=== PATIENT | female | born 1990 | race Caucasian/White ===

== ENCOUNTER 2019-06-09 06:48 | Emergency (ER) | payer BC ==
[~2019-06-09] VITALS: Ht 167.6 cm; Wt 68.0 kg
[2019-06-09 07:06] VITALS: BP_SYST 129
--- NOTE | 2019-06-09 07:06 | NUR ---
Patient to ER bed 8 to gown for evaluation. Side rails up. Report given to VARUN Alexis.
--- NOTE | 2019-06-09 07:16 | NUR ---
Patient is awake, alert, and oriented x4. Patient states she has had right hip and leg pain for 1 month. She went to urgent care and was told to see her PCP, which she has an appointment on Tuesday for. Patient states last night it was really bad. She is complaining of right hip pain radiating down to her right knee 03/17.
--- NOTE | 2019-06-09 07:20 | NUR ---
ER Dr. Blankenship at bedside examining patient.
[2019-06-09] MEDS ORDERED: KETOROLAC TROMETHAMINE 60 MG/2 ML VIAL IM ONE (07:30)
[2019-06-09 07:53] LABS: BILIRUBIN,URINE NEGATIVE (NEGATIVE); BLOOD, URINE NEGATIVE (NEGATIVE); CLARITY/URINE CLEAR (CLEAR); COLOR,URINE YELLOW (YELLOW); GLUCOSE,URINE NEGATIVE (NEGATIVE); KETONES,URINE NEGATIVE (NEGATIVE); LEUKOCYTE ESTERASE ,URINE NEGATIVE (NEGATIVE); NITRITE, URINE NEGATIVE (NEGATIVE); PROTEIN URINE NEGATIVE (NEGATIVE); UROBILINOGEN,URINE 0.2 (0.2-1.0)
[2019-06-09 07:58] LABS: HCG,QUAL RESULT NEGATIVE (NEGATIVE)
[2019-06-09 08:03] VITALS: BP_SYST 138
--- NOTE | 2019-06-09 08:03 | NUR ---
Patient given written and verbal discharge instructions and verbalizes understanding. ER MD discussed with patient the results and treatment provided. Patient in stable condition. ID arm band removed. Rx of naproxen given. Patient educated on pain management and to follow up with PMD. Pain Scale 5/10, MD is aware. Opportunity for questions provided and answered. Medication side effect fact sheet provided.
== END 2019-06-09 08:03 | disposition home or self-care (01) ==
LOC: SED 06:48
DX: M54.41 Lumbago with sciatica, right side (principal)
CPT/HCPCS: 81003; 81025; 84703; 96372; 99283; J1885